=== PATIENT | female | born 1965 | race Caucasian/White ===

== ENCOUNTER 2018-03-30 10:13 | Emergency (ER) | payer SELFPAY ==
[~2018-03-30] VITALS: Ht 149.9 cm; Wt 72.1 kg
[2018-03-30 10:18] VITALS: Ht 149.9 cm; Wt 72.1 kg
[2018-03-30 13:39] VITALS: BP 135/78
== END 2018-03-30 14:00 | disposition home or self-care (01) ==
LOC: ED 10:13
DX: S20.212A Contusion of left front wall of thorax, initial encounter (principal); V89.2XXA Person injured in unspecified motor-vehicle accident, traffic, initial encounter; Y93.89 Activity, other specified; Y92.89 Other specified places as the place of occurrence of the external cause; Y99.8 Other external cause status

== ENCOUNTER 2019-10-17 10:59 | Emergency (ER) | payer SELFPAY ==
[~2019-10-17] VITALS: Ht 144.8 cm; Wt 70.3 kg
[2019-10-17 11:10] VITALS: Ht 144.8 cm; Wt 70.3 kg
[2019-10-17 12:29] LABS: BASOPHIL % 0.4 % (0-2); PLATELET COUNT 213 x10^3mcL (130-400); RED CELL DISTRIBUTION WIDTH 13.2 % (11.5-14.5)
[2019-10-17 12:32] LABS: CALCIUM 8.8 mg/dL (8.5-10.1); CARBON DIOXIDE 30.5 mmol/L (21-32); CHLORIDE SERUM 106 mmol/L (98-107); CREATININE SERUM 0.5 mg/dL (0.6-1.0); GFR1 > 60 mL/min; GLUCOSE SERUM 99 mg/dL (74-106); POTASSIUM SERUM 3.8 mmol/L (3.5-5.1); SODIUM SERUM 141 mmol/L (136-145)
[2019-10-17 12:37] LABS: ALBUMIN 3.7 g/dL (3.4-5.0); ALKALINE PHOSPHATASE 85 U/L (46-116); ALT/SGPT 49 U/L (14-59); AST/SGOT 24 U/L (15-37); BILIRUBIN TOTAL 0.39 mg/dL (0.20-1.00); TOTAL PROTEIN, SERUM 7.4 g/dL (6.4-8.2)
[2019-10-17 14:20] VITALS: BP 106/75
== END 2019-10-17 14:20 | disposition home or self-care (01) ==
LOC: ED 10:59
PROVIDERS: Emergency Medicine
DX: F41.9 Anxiety disorder, unspecified (principal); R20.2 Paresthesia of skin
CPT/HCPCS: J2765; J7030